=== PATIENT | male | born 1955 | race Two or more races ===

== ENCOUNTER 2016-11-06 00:30 | Emergency (ER) | payer OTHER ==
[~2016-11-06] VITALS: Ht 165.1 cm; Wt 77.6 kg
[2016-11-06 01:21] VITALS: BP 233/124
[2016-11-06] MEDS ORDERED: ONDANSETRON 2MG/ML, 2ML ONE (01:52)
== END 2016-11-06 01:24 | disposition home or self-care (01) ==
LOC: ED 01:16
DX: I10 Essential (primary) hypertension (principal)
CPT/HCPCS: 93005; 99283